=== PATIENT | female | born 1955 | race Caucasian/White ===

== ENCOUNTER 2023-10-26 13:25 | Inpatient (IN) | payer MEDICARE, OTHER ==
[2023-10-26] VITALS (8 sets, daily range): BP systolic 142–210; BP diastolic 73–99
[~2023-10-26] VITALS: Ht 167.6 cm; Wt 84.2 kg
[2023-10-26 13:44] LABS: BASOPHILS 0.4 % (0-2); EOSINOPHILS 0.2 % (0-6); HEMATOCRIT 39.6 % (35.0-50.0); HEMOGLOBIN 12.5 g/dL (12.0-18.0); MCHC 31.6 g/dl (30-36); MCV 79.1 fl (81-99); MONOCYTES 6.6 % (0-12); NEUTROPHILS 86.8 % (39-80); PLATELET COUNT 275 K/uL (140-440); RDW 14.3 (10.5-15.0)
[2023-10-26] MEDS ORDERED: LIDOCAINE 2% VISCOUS 6 ML SYR TOP ONE ×2 (13:45→20:30)
[2023-10-26] MEDS ORDERED: ondansetron HCL 4 MG/2 ML VIAL IV ONE (13:45)
[2023-10-26 13:52] LABS: INR 1.02 (0.80-1.30); PROTIME 12.7 Sec (11.2-14.2)
[2023-10-26 14:07] LABS: ALBUMIN 3.3 g/dL (3.4-5.0); ALBUMIN/GLOBULIN RATIO 0.69 (1.1-2.4); ANION GAP 14.5 (7-21); BILIRUBIN, TOTAL 0.3 ng/dL (0.2-1.0); BUN/CREATININE RATIO 5.88 (6.0-28.6); CALCIUM 8.3 mg/dL (8.5-10.1); CREATININE, SERUM 0.85 mg/dL (0.55-1.02); POTASSIUM 3.5 mmol/L (3.5-5.1); PROTEIN, TOTAL 8.1 g/dL (6.4-8.2)
[2023-10-26 14:09] LABS: ALCOHOL, MEDICAL <3 ng/dL (<3)
[2023-10-26 14:21] LABS: ABO B; RH POSITIVE
[2023-10-26 14:22] LABS: ANTIBODY SCREEN NEGATIVE
[2023-10-26 15:31] LABS: BILIRUBIN, URINE NEGATIVE (negative); BLOOD/HGB, URINE TRACE-I (Negative); KETONE, URINE NEGATIVE (Negative); LEUK ESTERASE, URINE NEGATIVE (negative); NITRITE, URINE NEGATIVE (negative)
[2023-10-26 15:38] LABS: EPITHELIAL CELLS, URINE SQUAMOUS 1+ /lpf (0-1+)
[2023-10-26 15:39] LABS: BACTERIA, URINE NONE SEEN /hpf (negative); CRYSTALS, URINE NONE SEEN (0-1+)
[2023-10-26 15:41] LABS: CASTS, URINE GRANULAR 1+ \\lpf; COLLECTION TYPE, URINE CLEAN CATCH; REFLEX CULTURE, URINE No (No)
[2023-10-26 15:44] LABS: AMPHETAMINES, URINE NEGATIVE (NEGATIVE); BARBITURATES, URINE NEGATIVE (NEGATIVE); BENZODIAZEPINE, URINE NEGATIVE (NEGATIVE); BUPRENORPHINE, URINE NEGATIVE (NEGATIVE); CANNABINOID, URINE NEGATIVE (NEGATIVE); COCAINE, URINE NEGATIVE (NEGATIVE); ECSTASY, URINE NEGATIVE (NEGATIVE); FENTANYL, URINE NEGATIVE (NEGATIVE); METHADONE, URINE NEGATIVE (NEGATIVE); OPIATES, URINE NEGATIVE (NEGATIVE); OXYCODONE, URINE NEGATIVE (NEGATIVE); PHENCYCLIDINE, URINE NEGATIVE (NEGATIVE)
[2023-10-26 16:04] LABS: PH, VENOUS 7.347 (7.31-7.41)
[2023-10-26 16:12] LABS: TSH, 3RD GENERATION 2.333 uIU/mL (0.358-3.740)
[2023-10-26] MEDS ORDERED: SODIUM CHLORIDE 0.9% 1,000 ML IV PRN ×2 (16:30→17:30)
[2023-10-26] MEDS ORDERED: SODIUM CHLORIDE 0.9% 1,000 ML IV SCH (18:15)
[2023-10-26] MEDS ORDERED: LABETALOL HCL 20 MG/4 ML VIAL ONE (19:10)
[2023-10-26] MEDS ORDERED: LABETALOL HCL 100 MG/20 ML MDV IV ONE (19:15)
[2023-10-26] MEDS ORDERED: VANCOMYCIN HCL/D5W 1 GM/270 ML PIGGYBACK KIT IV ONE (19:15)
[2023-10-26] MEDS ORDERED: CEFTRIAXONE/SODIUM CHLORIDE 2 GM/100 ML PIGGYBACK IV ONE (19:15)
[2023-10-26] MEDS ORDERED: ALBUTEROL/IPRATROPIUM 3 ML NEB ONE (19:23)
[2023-10-26] MEDS ORDERED: ACETAMINOPHEN 500 MG TAB ONE (19:24)
[2023-10-26] MEDS ORDERED: ACETAMINOPHEN 500 MG TAB PO PRN (19:30)
--- NOTE | 2023-10-26 19:30 | NUR ---
PATIENT ADMITTED AT 1845 FOR METABOLIC ENCEPHALOPATHY, WITH HER JOSE WITH HER. PATIENT PULLED TO CCU BED X 3 PERSON ASSIST. PT NOTED TO BE WARM AND AXILLARY TEMP IS 101.7. PT'S BLOOD PRESSURES ARE VERY ELEVATED, WITH THE HIGHEST BEING 210/99. PT IS ON 3 L OXYMASK AND AFTER A FEW MINUTES, STARTING TO DESATURATE INTO THE MID 80s, AND TACHYCARDIC AT 120s. PT NOT ABLE TO ANSWER QUESTIONS APPROPRIATELY, LIKE HER OR NAME, BUT DOES FOLLOW SIMPLE COMMANDS. PUPILS ARE EQUAL, BUT SMALL, AROUND 2. PT IS ALSO VERY TACHYPNEIC, WITH ACCESSORY MUSCLE USE NOTED IN THE ABDOMEN AND CHEST WALL. OXYGEN INCREASED TO 6 L OXYMASK FIRST, AND THEN UP TO 10L. MELINDA HELLER ON P BRIANNA WITH DR. JACKMAN TO RECEIVE ORDERS FOR IV LABETALOL AND TO START ANTIBIOTICS, WELL COLLECT BLOOD CULTURES. ALL ORDERS PLACED.
[2023-10-26 19:31] LABS: PH, VENOUS 7.361 (7.31-7.41)
--- NOTE | 2023-10-26 19:33 | NUR ---
DR. JACKMAN CALLS UNIT TO GET UPDATE ON PATIENT AND INFORMED OF MOST RECENT BLOOD PRESSURES AND MENTAL STATUS. ORDERS REC'D AND PLACED IN CHART. COMMERCIAL GREEN BUILDING ARCHITECT CALLED TO REQUEST PHYSICIAN LIAISON FOR LUMBAR PUNCTURE. DR. JACKMNA TO COME SEE PATIENT. IVF STARTED AT 125 ML/HR. RT AT BEDSIDE. BLOOD CULTURES DRAWN BY LAB. PT'S JOSE LEAVES FOR THE NIGHT. HE DOES ENDORSE THAT SHE DRINKS ALCOHOL NIGHTLY WITH THE MOST RECENT BEING LAST NIGHT. REPORT GIVEN TO FLOOR SCRAPER.
[2023-10-26] MEDS ORDERED: ALBUTEROL SULFATE 0.083% 3 ML VIAL INH PRN (19:45)
--- NOTE | 2023-10-26 19:45 | NUR ---
IMAGING IN ROOM FOR CHEST XRAY. PATIENT ABLE TO SIT FORWARD AND FOLLOW INTRUCTIONS. TOLERATED WELL.
[2023-10-26] MEDS ORDERED: ALBUTEROL/IPRATROPIUM 3 ML NEB INH SCH (20:00)
--- NOTE | 2023-10-26 20:00 | NUR ---
THIS RN ASSISTED WITH LUMBAR PUNCTURE, MAKEUP SALES ADVISOR CARLOS PERFORMED. PATIENT ABLE TO FOLLOW MOST INSTRUCTIONS WITH SOME COACHING. TOLERATED WELL. DUE TO POSITIONING AND INCREASED RR, PATIENT ON 10L OXYMASK FOR PROCEDURE, THEN TURNED TO 3L AFTER RECOVERING. HOB AT 30 DEGREES. BP Q15M FOR NOW. CONTINOUS CARDIAC AND Sp02 MONITORING.
[2023-10-26] MEDS ORDERED: levETIRAcetam 500 MG/5 ML VIAL IV ONE (20:15)
[2023-10-26] MEDS ORDERED: FOLIC ACID 1 MG/0.2 ML ML IV SCH (20:15)
[2023-10-26] MEDS ORDERED: LORazepam 2 MG/ML VIAL IV PRN ×2 (20:15→20:30)
[2023-10-26] MEDS ORDERED: VANCOMYCIN HCL 1,000 MG/20 ML VIAL IV ONE ×2 (20:30→21:15)
--- NOTE | 2023-10-26 20:30 | NUR ---
DISCUSSED PLAN OF CARE WITH MD. ALL QUESTIONS ANSWERED AND ORDERS ENTERED WITH BRITT LAWRENCE ASSISTANCE. PATIENT IS ALERT, TOLERATING 3L OXYMASK. RR 25-30. LABS DRAWN FOR REPEAT LACTIC. PLANS TO PLACE CERVANTES, PATIENT HAS VOIDED USING PURE WIC AND IS RECOVERING FROM LUMBAR PUCTURE, WILL HOLD ON CERVANTES AT THIS TIME.
[2023-10-26 20:39] LABS: INFLUENZA B NAA NEGATIVE (NEGATIVE); RESPIRATORY SYNCYTIAL VIR NAA NEGATIVE (NEGATIVE)
--- NOTE | 2023-10-26 20:57 | NUR ---
PATIENT PLACED ON CPAP PER RT. PATIENT DESAT TO 82% ON 6L OXYMASK. INSTRUCTED TO COUGH AND TAKE DEEP BREATHS, WHICH PATIENT DID AND NO CHANGE IN Sp02 NOTED. PATIENT RR 35-40 WITH ACCESORY MUSCLES. AXILLARY TEMP 102.0 F. BP CONTINUES TO BE ELEVATED WITH SYSTOLIC OF 171. SEE VS CHART. HR 95-110. PATIENT IS ALERT, ORIENTED TO SELF AND SURROUNDINGS IT SEEMS. HOWEVER, HAS SOME EXPRESSIVE APHASIA. MOVES ALL EXTREMITIES AND FOLLOWS DIRECTIONS.
[2023-10-26] MEDS ORDERED: ACYCLOVIR SOD 500 MG/10 ML VIAL ONE (20:59)
[2023-10-26] MEDS ORDERED: AMPICILLIN SOD 2 GM ONE (21:05)
[2023-10-26 21:07] LABS: GLUCOSE, CSF 84 mg/dL (40-70); PROTEIN, CSF 22 mg/dL (15-45)
--- NOTE | 2023-10-26 21:08 | NUR ---
PATIENT APPEARS MORE COMFORTABLE. RR IMPROVED FROM 35-40 TO 20-22. Sp02 95%. PATIENT DEMONSTRATES ABILITY TO REMOVE CPAP MASK AND IS IN DIRECT LINE OF SIGHT OF THIS RN.
[2023-10-26] MEDS ORDERED: VANCOMYCIN HCL 500 MG VIAL IV ONE (21:15)
[2023-10-26 21:44] LABS: CLARITY, CEREBROSPINAL FLUID CLEAR; COLOR, CEREBROSPINAL FLUID COLORLESS; RBC, CEREBROSPINAL FLUID 58; WBC, CEREBROSPINAL FLUID 7
--- NOTE | 2023-10-26 21:44 | NUR ---
UPDATE GIVEN TO MD VIA PHONE. ORDERS TO HOLD IVF FOR NOW CONSIDERING ELEVATED BNP AND FLUID BEING GIVEN FOR IV ABX. PATIENT APPEARS COMFORTABLE IN BED. EYES CLOSED, WAKES EASILY. HR 95-100, SR. BP IMPROVED SLIGHTLY WITH SYSTOLIC OF 153. SpO2 97% ON CPAP OF 12 AT 30% Fi02. RR 18-20. AXILLARY TEMP CONTINUES TO BE ELAVTED. MEDS INFUSING PER ORDER, IV SITES WNL X2. PATIENT REMAINS TO BE IN DIRECT LINE OF SIGHT OF PRIMARY RN WITH FREQUENT ASSESSMENT AND VS.
[2023-10-26 21:46] LABS: MONONUCLEAR CELLS, CSF 6; PMNS, CEREBROSPINAL FLUID 94
[2023-10-26] MEDS ORDERED: AMPICILLIN SOD 2 GM in SODIUM CHLORIDE 0.9% 100 ML IV SCH (22:00)
[2023-10-26] MEDS ORDERED: DEXTROSE 5% IV SCH (22:00)
[2023-10-26] MEDS ORDERED: ACYCLOVIR SOD IV SCH (22:00)
[2023-10-26] MEDS ORDERED: THIAMINE HCL 200 MG/2 ML VIAL IV SCH (22:00)
--- NOTE | 2023-10-26 23:02 | NUR ---
PATIENT WAKES EASILY WHILE RN IN ROOM. TOLERATING CPAP WELL. PATIENT REPORTS SHE NEEDS TO VOID. REMINDED HER OF PURE WIC IN PLACE AND PATIENT WAS ABLE TO VOID. ABX INFUSIONS CONTINUE, IV SITES WNL X2. VS STABLE. AXILLARY TEMP CONTINUES TO BE ELEVATED BUT LESS THAN PREVIOUS ASSESSMENT. SEE VS CHART.
[2023-10-27] VITALS (24 sets, daily range): BP systolic 97–172; BP diastolic 52–93
[2023-10-27] MEDS ORDERED: MAGNESIUM SULFATE 4 GM/100 ML BAG IV ONE (00:30)
--- NOTE | 2023-10-27 00:44 | NUR ---
PATIENT WOKE AND REQUESTED CPAP OFF. PATIENT SWITCHED TO 3L NC. ORAL CARE DONE. SIPS OF WATER PROVIDED. PATIENT TOLERATED WELL. RT IN ROOM FOR NEB TREATMENT. PATIENT'S RR INCREASED AFTER ABOUT 10 MINS OF BEING OFF CPAP. RT PLACED PATIENT BACK ON CPAP. ASSISTED PATIENT TO REPOSITION TO HER SIDE. PATIENT ABLE TO VERBALIZE MORE OF HER DISCOMFORT AND NEEDS. SOME EXPRESSIVE APHASIA PERSIST. PATIENT'S AXILLARY TEMP CONTINUES TO BE ELEVATED. ALSO NOTED DURING LAST 2 HOURS THAT PATIENT HAS HAD MORE ECTOPY ON ASSIGNMENT CLERK AND EPISODES OF BRADYCARDIAC WELL TACHYCARDIA UP TO 140'S. MAG ADDED TO PREVIOUS LABS. RESULT REPORTED TO MD WITH UPDATE ON PATIENT; MAG REPLACEMENT ORDERED. VERIFIED VIA REPEAT BACK.
[2023-10-27] MEDS ORDERED: AMPICILLIN SOD 2 GM ONE ×2 (01:04→01:31)
--- NOTE | 2023-10-27 01:53 | NUR ---
PATIENT OFF CPAP. REPORTS HEADACHE. ORAL TEMP ELEAVTED 102.3 F PRN TYLENOL PROVIDED. PATIENT TOLERATED WELL. PURE WIC AND CHUCKS CHENGED DUE TO PURE WIC DISPLACED AND SOME UNMEASURED URINE ON CHUCKS. PATIENT REPOSITIONED FOR COMFORT. GOWN AND LINEN CHANGED. PATIENT ON 3L NC. RR 20-24. DENIEDS FEELING SOB. ABLE TO COMMUNICATE SLIGHTLY BETTER THAN PREVIOUSLY NOTED. SOME EXPRESSIVE APHASIA STILL NOTED. CIWA OF 4. PATIENT PROVIDED WITH CALL LIGHT AND DEMONSTRATED ABILITY TO PUSH THE BUTTON. CONTINUED TO HAVE CLOSE OBSERVATION DUE TO COMMUNICATION CONCERNS. BED ALARM ACTIVE.
--- NOTE | 2023-10-27 05:18 | NUR ---
PATIENT TITRATED TO 1L NC. PATIENT IS RESTING WITH EYES CLOSED. WAKES EASILY TO VOICE. LAB IN ROOM FOR MORNING DRAW. PATIENT UNABLE TO PROVIDE HER LAST NAME OR . PATIENT IS ABLE TO REPORT HER HEADACHE IS BETTER AND THAT SHE IS MORE COMFORTABLE. VS STABLE. HR 80'S. RR 16-18. BP IMPROVED. SEE VS CHART. PATIENT DENIED ANY NEEDS AT THIS TIME. ALLOWED PATIENT TO REST. CALL LIGHT IN REACH.
[2023-10-27 05:34] LABS: BASOPHILS 0.5 % (0-2); EOSINOPHILS 0.1 % (0-6); HEMOGLOBIN 10.7 g/dL (12.0-18.0); MCH 25.4 (27-36); MCHC 32.4 g/dl (30-36); MCV 78.3 fl (81-99); MONOCYTES 14.2 % (0-12); NEUTROPHILS 72.2 % (39-80); PLATELET COUNT 232 K/uL (140-440); RBC 4.21 M/ul (4.3-5.7); RDW 14.5 (10.5-15.0)
[2023-10-27] MEDS ORDERED: ACYCLOVIR SOD 500 MG/10 ML VIAL ONE (05:43)
[2023-10-27 05:56] LABS: ALBUMIN 2.7 g/dL (3.4-5.0); ALBUMIN/GLOBULIN RATIO 0.71 (1.1-2.4); ANION GAP 10.9 (7-21); BILIRUBIN, TOTAL 0.3 ng/dL (0.2-1.0); BUN/CREATININE RATIO 3.7 (6.0-28.6); CALCIUM 7.6 mg/dL (8.5-10.1); CREATININE, SERUM 0.81 mg/dL (0.55-1.02); POTASSIUM 2.9 mmol/L (3.5-5.1); PROTEIN, TOTAL 6.5 g/dL (6.4-8.2)
--- NOTE | 2023-10-27 06:00 | NUR ---
PATIENT ALERT, ABLE TO VERBALIZE HER NEEDS ALTHOUGH SOMEWHAT DIFFICULT TO FIND HER WORDS. PATIENT REQUEST TO GET OUT OF BED. ASSISTED PATIENT UP TO THE BSC TO VOID. PATIENT IS WEAK BUT STEADY WITH 1PA. PATIENT REQUEST TO SIT IN THE CHAIR. ASSISTED TO THE CHAIR. PATIENT REMIANS ON MONTIOR. IV ABX INFUSING PER ORDER, SITES WNL X2. CALL LIGHT IN HAND. WATER PROVIDED. PATIENT ASKED FOR TV ON WHICH WAS DONE. OVERALL PATIENT IN GOOD SPIRITS. DOES APPEAR TO BE SLIGHTLY SORE FROM LAYING IN BED AND REPORTS FEELING BETTER IN RECLINER. PATIENT DID ASK THAT RN UPDATE HER .
--- NOTE | 2023-10-27 06:46 | NUR ---
UPDATE PROVIDED TO . KATY POTASSIUM REPLACEMENT ORDERED.
--- NOTE | 2023-10-27 07:30 | NUR ---
REPORT RECEIVED. PATIENT IS SITTING UP IN CHAIR. IVF PATENT. DENIES PAIN. ABLE TO FOLLOW MOST COMMANDS. UNABLE TO TELL ME THE MONTH, HER DATE OF . FRUSTRATED AT TIMES. NO S/S OF ETOH WITHDRAWAL. TALKED WITH PATIENT ABOUT POC FOR THE DAY. IS FORGETFUL, SO THIS WILL NEED TO BE TALKED ABOUT THROUGH THE DAY. WILL HAVE AN ECHO AND MRI TODAY. DENIES SHORTNESS OF BREATH. RESP EQUAL AND NO LABORED. IS ON RA. CPAP IN ROON ON STANDBY. CALL LIGHT WITHIN REACH.
[2023-10-27] MEDS ORDERED: POTASSIUM CHLORIDE 10 MEQ TABCR PO SCH (08:00)
--- NOTE | 2023-10-27 08:00 | NUR ---
EATING YOGART FOR BREAKFAST WHILE SITTING UP IN CHAIR. IS IN ROOM. PATIENT TALKING IN COMPLETE SENTENCES. ABLE TO FOLLOW COMMANDS. CONTINUES TO HAVE TROUBLE WITH DATE OF AND DATE. DR. JACKMAN HERE TO SEE PATIENT. NO FUTHER ORDERS AT THIS TIME.
--- NOTE | 2023-10-27 08:02 | NUR ---
CONNECTED WITH IN HALLWAY AND ACCOMPANIED HIM TO PT ROOM. HE EXPRESSED SITUATIONALLY APPROPRIATE CONCERN. I PROVIDED SUPPORTIVE PRESENCE; LISTENED EMPATHETICALLY; PROVIDED PRAYER. WILL FOLLOW-UP CIRCUMSTANCES ALLOW.
[2023-10-27] MEDS ORDERED: ENOXAPARIN SODIUM 40 MG/0.4 ML SYR SUB-Q SCH (09:00)
[2023-10-27] MEDS ORDERED: levETIRAcetam 500 MG/5 ML VIAL IV SCH (09:00)
--- NOTE | 2023-10-27 09:00 | NUR ---
BACK TO BED W/O INCIDENT. DIZZY WITH AMBULATION.
--- NOTE | 2023-10-27 10:05 | NUR ---
TO MRI VIA W/C. RN AND PASSENGER CAR INSPECTOR WITH PATIENT.
--- NOTE | 2023-10-27 10:33 | NUR ---
PATIENT IS BACK TO THE ROOM AND LYING IN BED AFTER MRI. POTASSIUM CHLORIDE AND FOLIC ACID ADMINISTERED PER THE EMAR. PATIENT RECONNECTED TO CARDIAC MONITORING. PATIENT STATED NO FURTHER NEEDS AT THIS TIME. CALL LIGHT AND PERSONAL BELONGINGS ARE WITHIN REACH.
--- NOTE | 2023-10-27 10:40 | NUR ---
RETURNED TO ROOM 129. TOLERATED MRI WELL. DENIES PAIN. NO FUTHER CHANGES.
[2023-10-27] MEDS ORDERED: OMEPRAZOLE40 MG PO (11:07)
--- NOTE | 2023-10-27 11:07 | NUR ---
MED REC COMPLETE
--- NOTE | 2023-10-27 11:31 | NUR ---
IN BED RESTING WITH HOB ELEVATED, WATCHING TV. IS W/O C/O.
--- NOTE | 2023-10-27 11:45 | NUR ---
PT, OT HERE TO WORK WITH PATIENT. PHYS THERAPY RECOMMENDS THAT WHEN PATIENT AMBULATES, TO USE A WALKER FOR NOW. AFTER THERAPY DONE, PATIENT IS CHAIR.
--- NOTE | 2023-10-27 11:47 | NUR ---
UR NOTE 10/27/23 INPATIENT ORDER 10/26/23 1813 EXPECTED LOS > 2 MIDNIGHTS PRIMARY INSURANCE: MEDICARE
[2023-10-27] MEDS ORDERED: PHARMACY RENAL DOSE ADJUSTMENT 1 DOSE MISC PO SCH (12:00)
--- NOTE | 2023-10-27 12:00 | NUR ---
ASSESSMENT DONE. NO CHANGES IN NEUROS. SITTING UP IN CHAIR FOR LUNCH.
--- NOTE | 2023-10-27 12:05 | NUR ---
PATIENT COMPLETED PT, BACK TO ROOM. SITTING UP IN RECLINER FOR LUNCH. MELINDA HELLER AT BEDSIDE. VITALS CHARTED.
--- NOTE | 2023-10-27 13:49 | NUR ---
ATTEMPT TO CONTACT , JOSE, NO ANSWER.
[2023-10-27] MEDS ORDERED: ACYCLOVIR SOD 850 MG in DEXTROSE 5% 250 ML IV SCH (14:00)
--- NOTE | 2023-10-27 17:14 | NUR ---
CONTINUES TO SIT IN CHAIR. DENIES PAIN. ASKING ABOUT WHEN SHE MIGHT BE ABLE TO GO HOME. TOLD PATIENT I WAS UNSURE WHEN SHE WILL BE DISCHARGED. NO FEVER TODAY. HAS HAD POOR APPETITE TODAY.
--- NOTE | 2023-10-27 18:00 | NUR ---
DENIES PAIN. STATES SHE IS FEELING BETTER. CIWA 1. HAS HAD NO TREATMENT FOR ETOH WITHDRAWAL TODAY. TOOK APPROX 25 % OF DINNER. IVF CONTINUE TO INFUSE AT 125 ML/HR. IS ABLE TO ANSWERE QUESTIONS. ABLE TO TELL ME THE MONTH AND YEAR NOW. FACE WITH MORE EXPRESSION. GATE IS MORE STABLE.
--- NOTE | 2023-10-27 18:40 | NUR ---
BACK TO BED. NO FUTHER CHANGES. RESTING WITH HOB ELEVATED.
--- NOTE | 2023-10-27 19:10 | NUR ---
REPORT TO NEXT SHIFT. NO FUTHER CHANGES.
--- NOTE | 2023-10-27 20:57 | NUR ---
VS, I&O AND ASSESSMENT COMPLETED. PT ORIENTED TO ALL BUT EVENT. SCHEDULED MEDS PROVIDED. LUNGS CLEAR IN UPPER LOBES, CRACKLES IN LOWER LOBES. PT DENIES SOB. ABD SOFT, NONTENDER, BOWEL TONES ACTIVE. EENT WNL. CMS INTACT. SKIN IS FRAGILE AND HEAD HEMATOMA NOTED. IV CDI, FLUSHED WELL, IV EDUCATION PROVIDED. PT IS SLOW TO RESPOND DUE TO SOME EXPRESSIVE APHASIA. PT UP TO BR, SBA WITH FWW, BACK TO BED. ICE WATER PROVIDED. BREATHING TX CURRENTLY GOING, PT TOLERATING WELL. PT STATES NO OTHER NEEDS AT THIS TIME. RAILS UP, BED LOW, CALL LIGHT IN REACH.
--- NOTE | 2023-10-27 21:15 | NUR ---
BREATHING TREATMENT COMPLETED. PT STATES NO OTHER NEEDS AT THIS TIME. CALL LIGHT IN REACH.
--- NOTE | 2023-10-27 21:52 | NUR ---
SCHEDULED MED PROVIDED. PT STATES NO OTHER NEEDS. CALL LIGHT IN REACH.
--- NOTE | 2023-10-27 22:12 | NUR ---
REPORT FROM HENRY STRICKLAND RN FLOAT TO ASSUME CARE AT THIS TIME.
--- NOTE | 2023-10-27 22:30 | NUR ---
PATIENT ROUNDING, PATIENT REPORTS NNED TO USE BATHROOM, THIS RN STANDBY ASSIST WITH FWW, PATIENT TOLERATED WELL WITH STEADY GAIT. MISS COLLECTION HAT IN TOILET WILL ADDED SECOND HAT. PATIENT BACK TO BED, ALERT AND ORIENTED AT THIS TIME, NO NEW CONCERNS FROM REPORT AT TRANSFER OF CARES. FRESH ICE WATER PROVIDED, ASSESSMENT COMPLETE.
[2023-10-27] MEDS ORDERED: LABETALOL HCL 100 MG/20 ML MDV IV PRN (23:15)
--- NOTE | 2023-10-27 23:43 | NUR ---
UPDATED OVER THE PHONE TO PATIENTS ELEVATED B/P, NEW ORDER FOR PRN ADDED, AND ADMINISTERED.
--- NOTE | 2023-10-27 23:44 | NUR ---
UPDATED SILVIO WITH R.T. AT THIS TIME TO PATIENT OXYGEN SATURATION 88-89% WHILE SLEEPING.
[2023-10-28] VITALS (7 sets, daily range): BP systolic 153–180; BP diastolic 87–105
--- NOTE | 2023-10-28 00:06 | NUR ---
PATIENT SATURATIONS RUNNING BETWEEN 87 TO 92% WHILE SLEEPING ON RA. O2 2 LPM PLACED FOR THE NIGHT.
--- NOTE | 2023-10-28 00:16 | NUR ---
PATIENT UP TO BATHROOM ON ROOM AIR OXYGEN SATURATION STAYED 92% AND GREATER WITH ACTIVITY. PATIENT VOIDED 250ML URINE. SHE IS PLACED BACK TO 2L OXYGEN FOR SLEEP SHE WAS DESATURATING WHEN SLEEPING EARLIER IN SHIFT AND Yan SIMON ASSESSED AND PLACED TO 2L N.C.
--- NOTE | 2023-10-28 02:16 | NUR ---
PATIENT UP TO BATHROOM, TOLERATED ACTIVITY WELL, 1P WITH FWW STANDBY ASSIST. NO NEW CONCERNS. VOIDED 250ML URINE, CLEAR YELLOW.
--- NOTE | 2023-10-28 02:29 | NUR ---
PATIENT CALLED NURSES STATION, THIS RN INTO PATIENT ROOM, SHE SAID, "THIS OXYGEN TUBING IS MAKING ME FEEL OVERWHELMED." THIS RN SAID LETS TAKE IT OFF FOR A LITTLE WHILE AND MONITOR YOUR OXYGEN SATURATION. THIS RN SAID "IF YOUR OXYGEN SATURAION DROPS, WE CAN TALK ABOUT IT AGAIN"
--- NOTE | 2023-10-28 03:00 | NUR ---
PATIENT SAT TO SIDE OF BED, SET OFF BED ALARM. THIS RN INTO ROOM. PATIENT REPORTS SHE NEEDS TO USE THE BATHROOM AND THEN WOULD LIKE TO SIT UP IN RECLINER FOR AWHILE. SHE REPORTS SHE IS FEELING ANXIOUS, THIS RN DISCUSSED ANXIETY MEDICATION AVAILABLE, DOSE, SIDE EFFECTS ANSWERED ALL QUESTIONS, PATIENT SAID SHE WOULD LIKE TO HOLD OFF ON TAKING ANYTHING AT THIS TIME. PATIENT ON ROOM AIR 94% OXYGEN SATURATION AT THIS TIME.
[2023-10-28 03:52] LABS: PROCALCITONIN 0.2 ng/mL (())
--- NOTE | 2023-10-28 04:00 | NUR ---
PATIENT UP TO BATHROOM WITH FLOAT RN HENRY, CESAR RN INTO ROUND ON PATIENT, SHE IS NOTED TO HAVE INCREASE WORK OF BREATHING, WHEN ASKED SHE SAID "YES" TO THIS RN QUESTION "DO YOU FEEL YOU ARE HAVING MORE TROUBLE TAKING A FULL, DEEP BREATH", ALFRED Heredia CALLED TO UPDATEALFRED INTO ROOM TO ASSESS AND PROVIDE NEB TX PRN, PATIENT NOW FEELS SHE CAN BREATH DEEPER AND EASIER. ALSO ALFRED NOTED HE COULD HERE BETTER AIR MOVEMENT AFTER TREATMENT.
--- NOTE | 2023-10-28 05:04 | NUR ---
CALLED DUE TO PATIENT BLOOD PRESSURE 180/96, NEW ORDER SEE SEP.
[2023-10-28] MEDS ORDERED: cloNIDine HCL 0.1 MG TAB PO ONE (05:15)
[2023-10-28 05:41] LABS: BASOPHILS 0.2 % (0-2); EOSINOPHILS 0.6 % (0-6); HEMATOCRIT 33.2 % (35.0-50.0); LYMPHOCYTES 7.2 % (24-44); MCH 25.8 (27-36); MCV 78.1 fl (81-99); PLATELET COUNT 198 K/uL (140-440); RBC 4.26 M/ul (4.3-5.7); RDW 14.6 (10.5-15.0)
--- NOTE | 2023-10-28 05:47 | NUR ---
PATIENT HAS BEEN ALERT AND ORIENTED OVER SHIFT, HAS ONLY SLEPT SHORT PERIODS INTERMITTEN, REQUIRED OXYGEN FOR SHORT PERIODS WHILE SLEEPING DESAT TO 87%, WITH 2L OXYGEN N.C. 97%, PATIENT DID REPORT HAVING SOME ANXIETY, DECLINED MEDICATION FOR ANXIETY, LUNGS ARE CLEAR OVER DIM, NO CRACKLES APPRECIATED ON LUNG ASSESSMENT OVER SHIFT. VOIDING WELL OVER QUANTITY SUFFICIENT AMOUNTS. DRANK OVER 900ML OF WATER OVER SHIFT. NO BM NOTED ON CHART, PATIENT REPORTS SHE IS NOT SURE WHEN LAST BM WAS. SHE HAS BEEN AMBULATING WELL WITH STANDBY ASSIST WITH FWW TO BATHROOM. CALLED TWICE OVER SHIFT FOR ELEVATED B/P, NEW PROVIDED BOTH CALLS. ONE PRN NEB THIS AM DUE TO INCREASED WORK OF BREATHING AND FELT SHE IS UNABLE TO TAKE DEEP BREATH, IMPROVED AIR MOVEMENT AND WORK OF BREATHING AFTER NEB TX
[2023-10-28 05:57] LABS: ALBUMIN/GLOBULIN RATIO 0.73 (1.1-2.4); ANION GAP 11.8 (7-21); BILIRUBIN, TOTAL 0.7 ng/dL (0.2-1.0); BUN/CREATININE RATIO 6.45 (6.0-28.6); CALCIUM 8.1 mg/dL (8.5-10.1); CREATININE, SERUM 0.62 mg/dL (0.55-1.02); MAGNESIUM 1.8 mg/dL (1.8-2.4); POTASSIUM 3.8 mmol/L (3.5-5.1); PROTEIN, TOTAL 7.1 g/dL (6.4-8.2)
--- NOTE | 2023-10-28 06:33 | NUR ---
ROUNDING INTO PATIENT ROOM DUE TO PATIENT DESATURATING TO 86% ON ROOM AIR. PATIENT NOTED TO BE SLEEPING WITH HER HEAD TIPPED TO THE SIDE, PATIENT PLACED BACK TO 2L OXYGEN N.C. NOW IS 95% OXYGEN SATURATION.
--- NOTE | 2023-10-28 07:20 | NUR ---
ROUNDED WITH IN PATIENTS ROOM. THIS RN INTO BEDSIDE TO PROVIDE UPDATES. NEW ORDER FOR [facility], WANTS TO BE CALLED TWO HOURS AFTER ADMINISTRATION.
[2023-10-28] MEDS ORDERED: AMLODIPINE BESYLATE 10 MG TAB PO ONE (07:30)
--- NOTE | 2023-10-28 07:30 | NUR ---
REPORT RECEIVED. PATIENT IS SITTING UP IN CHAIR. DENIES PAIN. STATES SHE SLEPT POOR. STATES SHE IS FEELING BETTER TODAY.
[2023-10-28] MEDS ORDERED: ALBUTEROL/IPRATROPIUM 3 ML NEB INH SCH (08:00)
[2023-10-28] MEDS ORDERED: LORazepam 0.5 MG TAB PO ONE (08:00)
--- NOTE | 2023-10-28 08:00 | NUR ---
ASSESSMENT DONE. IS W/O C/O PAIN OF NAUSEA. IS ABLE TO TALK IN COMPLETE SENTENCES. WHEN ASKING PATIENT WHAT YEAR IT IS, SHE TOLD ME 2021. IS AWARE OF MONTH AND DAY OF THE WEEK. ABLE TO IDENTIFY EVERY ITEM I ASK HER THE NAME OF. PATIENT HAS BEEN TOLD SEVERAL TIMES THAT SHE PROBABLY HAD A SEIZURE, PATIENT SAID THAT SHE DIDN'T THIS. SHE IS HAVING PROBLEMS WITH MEMORY. DOES NOT REMEMBER HAVING A MRI OR ECHO YESTERDAY. ANXIOUS. RT HERE TO GIVE RT TX. AWARE OF PATIENT INCREASE ANXIETY. ATIVAN 0.5 MG PO ORDERED.
[2023-10-28] MEDS ORDERED: FOLIC ACID1 MG PO (09:34)
[2023-10-28] MEDS ORDERED: VITAMIN B-1100 M1 PO (09:34)
[2023-10-28] MEDS ORDERED: NORVASC10 MG PO (09:34)
[2023-10-28] MEDS ORDERED: OMEPRAZOLE40 MG PO (09:36)
--- NOTE | 2023-10-28 10:55 | NUR ---
DISCHARGED TO HOME VIA W/C ACCOMPANY BY AND [employer] COORDINATOR VOLUNTEER.
--- NOTE | 2023-10-28 17:04 | NUR ---
Received a call from Lisa. She was able to schedule her own appt with her pcp Ginette MEDINA. She mistakenly gave us the wrong birthday. She is now calling as she is unsure what she should do with her prescriptions. I called and the RN that discharged her will call and assist her.
[2023-10-29 12:02] LABS: HSV 1 SUBTYPE BY PCR Not Detected (()); HSV 2 SUBTYPE BY PCR Not Detected (()); HSV SUBTYPE SOURCE CSF (())
== END 2023-10-28 11:00 | disposition home or self-care (01) | DRG 897 ==
LOC: ED 13:25 → EDBD 18:13 → CCU 18:13
PROVIDERS: Emergency Medicine; ADMIT Internal Medicine; ATTEND Internal Medicine
DX: F10.139 Alcohol abuse with withdrawal, unspecified (principal); G31.2 Degeneration of nervous system due to alcohol; R56.9 Unspecified convulsions; I10 Essential (primary) hypertension; E66.9 Obesity, unspecified; W18.30XA Fall on same level, unspecified, initial encounter
CPT/HCPCS: 36415; 70450; 70551; 71045; 71260; 72125; 74177; 80053; 80307; 81001; 82040; 82140; 82803; 82945; 83605; 83690; 83735; 83880; 84157; 84443; 84484; 85025; 85610; 86140; 86850; 86900; 86901; 87502; 87529; 89051; 93005; 93010; 93306; 94640; 94660; 97163; 97167; 99285-25; A9270; G0480; J0133; J0290; J0696; J1650; J1953; J2405; J3370; J3411; J3475; J7030; J7060; Q9967; U0002